=== PATIENT | female | born 1995 | race Caucasian/White ===

== ENCOUNTER 2024-01-05 01:01 | Outpatient (CLI) | payer OTHER ==
[2024-01-05 01:24] VITALS: BP 133/77
--- NOTE | 2024-01-05 03:30 | PROVIDER PROGRESS NOTE ---
- HPI Current : Current EDU 01/07/24 Gestation 39 Weeks and 5 Days 4 Para 3 Vital Signs Temperature 208.2 F H 01/05/24 01:13 Heart Rate 94 01/05/24 01:13 Respiratory Rate 18 01/05/24 01:13 Blood Pressure 133/77 H 01/05/24 01:13 Temperature 208.2 F H 01/05/24 01:13 Heart Rate 94 01/05/24 01:13 Respiratory Rate 18 01/05/24 01:13 Blood Pressure 133/77 H 01/05/24 01:13 O2 Saturation If not protocol: Oxygen Flow, liters/minute - Procedures OB Procedure Performed: NST Diagnosis/Indication for NST: Other (contractions) NST Procedure: NST Procedure Start Date 01/05/24 Start Time 01:19 Stop Time 02:30 Vibroacoustic Stimulation Used No Patient States Movement Yes Findings: Reactive Cat 1 - Plan Plan: 28 yo at 39w5d presenting for labor check. has received care at [facility], sent here for triage as they are on divert. Patient evaluated by ANDREW. ZACH unchanged x 2, 2cm Thais comfortable with discharge home. Encouraged to schedule OB visit with her provider for this week. Jessica Draper MD
== END 2024-01-05 02:50 | disposition home or self-care (01) ==
LOC: WFO 01:01 → FBP 01:03 → WFO 02:50
PROVIDERS: ATTEND Obstetrics & Gynecology
DX: O47.1 False labor at or after 37 completed weeks of gestation (principal); Z3A.39 39 weeks gestation of pregnancy
CPT/HCPCS: 59025; 99214